=== PATIENT | male | born 1975 | race Two or more races ===

== ENCOUNTER 2020-01-26 08:23 | Emergency (ER) | payer MEDICAID ==
[~2020-01-26] VITALS: Ht 180.3 cm; Wt 62.6 kg
[2020-01-26] MEDS ORDERED: ACETAMINOPHEN 325 MG TABLET PO ONE (08:30)
--- NOTE | 2020-01-26 08:34 | NUR ---
PT IS IN ROOM #2B. DR BORDEN EVALUATED THE PT.
[2020-01-26] MEDS ORDERED: ACETAMINOPHEN 325 MG TABLET ONE (08:36)
[2020-01-26] MEDS ORDERED: IBUPROFEN 600 MG TABLET ONE (09:28)
[2020-01-26] MEDS ORDERED: IBUPROFEN 600 MG TABLET PO ONE (09:30)
--- NOTE | 2020-01-26 09:56 | NUR ---
PT WAS D/C'd TO HOME. D/C ISTRUCTIONS GIVEN TO THE PT BY DR BORDEN.
[2020-01-26 10:00] VITALS: BP 139/78
== END 2020-01-26 10:02 | disposition home or self-care (01) ==
LOC: ER 08:23
DX: S22.41XA Multiple fractures of ribs, right side, initial encounter for closed fracture (principal); Y04.2XXA Assault by strike against or bumped into by another person, initial encounter; Y92.89 Other specified places as the place of occurrence of the external cause; Z59.0 Homelessness
CPT/HCPCS: 71101; A4663